=== PATIENT | male | born 1990 | race Caucasian/White ===

== ENCOUNTER → 2020-11-24 02:50 | Outpatient (CLI) | payer OTHER, SELFPAY ==
[2020-11-24 19:14] LABS: SARS-CoV-2 RNA PCR Negative
== END ==
PROVIDERS: PCP Internal Medicine; Visit Provider Internal Medicine
DX: Z20.822 Contact with and (suspected) exposure to COVID-19 (principal)
CPT/HCPCS: C9803; U0003; U0005

== ENCOUNTER → 2021-05-25 08:36 | Outpatient (CLI) | payer BC, SELFPAY ==
--- NOTE | ~2021-05-25 | MR_ITS ---
EXAMINATION: MR brain/brain stem wo con DATE: 05/25/2021 09:09 INDICATION: Chronic headache. TECHNIQUE: Magnetic resonance imaging (MRI) of the brain and brainstem was performed without intraven ous contrast. Sequences included sagittal and axial T1-weighted FSE, axial diffusion-weighted FS EPI, axial T2*-weighted GRE, axial T2-weighted FLAIR Propeller, and axial T2-weighted Propeller. Apparent diffusion coefficient (ADC) maps were created. COMPARISON: None. FINDINGS: There is no intracranial hemorrhage, acute infarction, or abnormal intracranial mass lesion . The ventricles are normal in size. There is mild mucosal thickening in the ethmoid sinuses. The orb its are normal. There is a small left mastoid effusion. IMPRESSION: 1. Normal brain. Reviewed, dictated and finalized at location A. IMPRESSION: 1. Normal brain.
== END ==
PROVIDERS: PCP Internal Medicine; Visit Provider Chiropractor
DX: R51.9 Headache, unspecified (principal)
CPT/HCPCS: 70551